=== PATIENT | female | born 1965 | race Caucasian/White ===

== ENCOUNTER → 2017-01-10 | Outpatient (CLI) | payer BC ==
[~2017-01-10] MED LIST: AZITTAB PO; MECL25TA2 PO; ONDA4TAB7 SL
== END | disposition home or self-care (01) ==
LOC: C.RDSM 08:00
PROVIDERS: ATTEND Family Medicine Sports Medicine
DX: M25.531 Pain in right wrist (principal)

== ENCOUNTER → 2017-01-22 | Outpatient (CLI) | payer BC ==
--- NOTE | 2017-01-22 11:21 | DIAGNOSTIC IMAGING REPORT ---
RIGHT WRIST INJECTION UNDER FLUOROSCOPIC GUIDANCE CLINICAL HISTORY: Right wrist pain. Injection for MR arthrogram. PROCEDURE: The risks, benefits, and alternatives to the procedure were discussed with the patient. Written informed consent was obtained. The patient was placed supine on the fluoroscopy table, and a right wrist injection was performed under fluoroscopic guidance. The area was prepped and draped in the usual sterile fashion. The skin and soft tissues anesthetized with local 1% lidocaine. The right wrist joint was accessed utilizing a 22-gauge needle, and approximately 4 cc of a mixture of gadolinium contrast, Optiray 300, and saline was injected into the joint space under fluoroscopic guidance. There was normal distention of the capsule. The procedure was well tolerated and without immediate complication. The patient was then transferred to MRI for MR arthrography. FLUOROSCOPY TIME: 10 seconds. IMPRESSION: Unremarkable injection of the right wrist under fluoroscopic guidance. Electronically signed by: Jacob Portillo M.D. 01/22/2017 11:20 AM Dictated Date/Time: 01/22/2017 11:18 AM
--- NOTE | 2017-01-22 12:23 | DIAGNOSTIC IMAGING REPORT ---
MR ARTHROGRAM OF THE RIGHT WRIST CLINICAL HISTORY: Scapholunate ligament injury. Right wrist pain. COMPARISON STUDY: Radiographs of the right wrist dated 01/10/2017. TECHNIQUE: MR arthrogram of the right wrist is performed following the intra-articular administration of gadolinium contrast. Sequences are acquired in the axial, sagittal, and coronal planes. FINDINGS: There is widening between the scaphoid and the lunate, with complete rupture of the anterior and posterior scapholunate ligaments. There is dorsal tilt of the lunate with mild proximal migration of the capitate. There is degenerative sclerosis seen within the base of the scaphoid, and significant degenerative narrowing is noted at the radiocarpal joint. Significant cartilage loss is noted in the distal radius. There is mild marrow edema within the scaphoid and the lunate, as well as the base of the capitate. There is no MRI evidence of fracture or osteonecrosis. There is extensive degenerative tearing/maceration of ulnomeniscal homologue. Injected contrast is present within the distal radioulnar joint. The ulnar carpal collateral ligament is at least partially torn. The visualized flexor and extensor tendons appear intact. The overlying soft tissues are within normal limits. IMPRESSION: 1. Findings are consistent with rupture of the scapholunate ligaments with widening at the scapholunate articulation. 2. 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 3. 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 4. There is extensive tearing/maceration of the ulnomeniscal homologue of the triangular fibrocartilage complex. There is associated fluid within the distal radioulnar joint. 5. Suspect at least partial thickness tearing of the ulnar carpal collateral ligament. Dictated: 01/22/2017 11:35 AM Transcribed: 01/22/2017 12:22 PM PAT_Kenn Electronically signed by: Jacob Portillo M.D. 01/22/2017 12:36 PM Dictated Date/Time: 01/22/2017 11:35 AM
== END | disposition home or self-care (01) ==
LOC: C.MRIBC 09:36
PROVIDERS: ATTEND Family Medicine Sports Medicine
DX: S63.094A Other dislocation of right wrist and hand, initial encounter (principal); X58.XXXA Exposure to other specified factors, initial encounter; R93.7 Abnormal findings on diagnostic imaging of other parts of musculoskeletal system

== ENCOUNTER → 2017-11-18 | Outpatient (CLI) | payer BC | END | disposition home or self-care (01) | LOC: C.PAPS 07:39 | PROVIDERS: ATTEND Obstetrics & Gynecology | DX: Z01.419 Encounter for gynecological examination (general) (routine) without abnormal findings (principal) ==

== ENCOUNTER → 2018-03-31 | Outpatient (CLI) | payer OTHER ==
--- NOTE | 2018-03-31 15:13 | MAMMOGRAPHY REPORT ---
BILATERAL DIGITAL SCREENING MAMMOGRAM TOMOSYNTHESIS WITH CAD: 03/31/2018 CLINICAL HISTORY: Routine screening. Patient has no complaints. TECHNIQUE: Breast tomosynthesis in addition to standard 2D mammography was performed. Current study was also evaluated with a Computer Aided Detection (CAD) system. COMPARISON: Comparison is made to exams dated: 03/27/2017 mammogram, 03/21/2016 mammogram, 03/20/2015 ma mmogram, 03/16/2014 mammogram, 03/09/2013 mammogram, and 03/03/2012 mammogram - [facility] nter. BREAST COMPOSITION: There are scattered areas of fibroglandular density in both breasts. FINDINGS: A linear scar marker overlies the upper outer posterior left breast. There are stable meta llic biopsy marker clips in each breast. There is a newly visualized 5 mm nodular asymmetry in the retroglandular fat of the slightly lateral right breast on the cc view, thought to project along the posterior nipple line on the MLO view, for which additional spot compression tomosynthesis views and possible ultrasound are recommended. There are possible new groupings of microcalcifications in the upper outer middle one third of the left br east, for which additional spot magnification views are warranted. No other suspicious mass, architectural distortion or cluster of microcalcifications is seen. IMPRESSION: ACR BI-RADS CATEGORY 0: INCOMPLETE EVALUATION: NEED ADDITIONAL IMAGING EVALUATION The 5 mm nodular asymmetry in the slightly lateral, posterior right breast on the CC view and possibl e new groupings of micro calcifications in the left upper outer quadrant need additional imaging eval uation. The patient will be called to schedule an appointment. Approximately 10% of breast cancers are not detected with mammography. A negative mammographic report should not delay biopsy if a clinically suggestive mass is present. Mona Mcclendon M.D. ay/:03/31/2018 08:53:11 Tie Worker: Angelita LUI(Minoo)(Laila), [facility] letter sent: Addl Imaging 0 BI-RADS Code: ACR BI-RADS Category 0: Incomplete Evaluation: Need Additional Imaging Evaluation
== END | disposition home or self-care (01) ==
LOC: C.MAMM 07:46
PROVIDERS: ATTEND Obstetrics & Gynecology
DX: Z12.31 Encounter for screening mammogram for malignant neoplasm of breast (principal); N64.89 Other specified disorders of breast; R92.1 Mammographic calcification found on diagnostic imaging of breast

== ENCOUNTER → 2018-04-15 | Outpatient (CLI) | payer OTHER ==
--- NOTE | 2018-04-15 14:23 | MAMMOGRAPHY REPORT ---
BILATERAL DIGITAL DIAGNOSTIC MAMMOGRAM TOMOSYNTHESIS AND TARGETED RIGHT ULTRASOUND: 04/15/2018 CLINICAL HISTORY: 52-year-old woman called back from screening mammography for left breast microcalci fications and a 5 mm nodular asymmetry in the lateral, posterior right breast. 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 Mother was recently diagnosed with left breast cancer, and maternal a unt also had breast cancer. TECHNIQUE: Spot magnification left CC, ML; spot compression tomosynthesis right CC and MLO views wer e obtained. COMPARISON: Comparison is made to exams dated: 03/31/2018 mammogram, 03/27/2017 mammogram, 04/05/2016 tori mogram, 04/05/2016 stereotactic biopsy, 04/02/2016 mammogram, and 03/21/2016 mammogram - [facility]. BREAST COMPOSITION: There are scattered areas of fibroglandular density in both breasts. FINDINGS: The spot magnification views of the left upper outer quadrant demonstrate expected archite ctural distortion in the 1:30 middle one third of the breast at the site of prior surgical excision. There is also a jerzy-shaped biopsy marker clip remaining within the left upper outer middle one third of the breast. In the CC projection, there are a few scattered punctate microcalcifications with 2 discrete clusters of calcifications in the middle one third of the breast, along the posterior nipple line and in the lateral aspect of the breast. These are both thought to project superiorly based on the spot magnification ML view and of the calcifications demonstrate layering to confirm benign milk of calcium. Given the personal history of left breast atypia and family history of breast cancer, s tereotactic guided biopsy of both of the most prominent clusters of calcifications are recommended. The spot compression tomosynthesis views of the right breast, particularly in the CC tomosynthesis im ages, demonstrate a persistent 5 mm nodular asymmetry with irregular borders. No associated calcific ation. Further evaluation with ultrasound was performed. Targeted ultrasound was performed throughout the lateral right breast including the 12:00, retroareol ar and 6:00 axes. Sonographically normal tissue is seen without a discrete solid or cystic mass. Gi angela the irregular masslike nature of this finding on the CC tomosynthesis images (slice 47/77), a mirza reotactic tomosynthesis guided right breast biopsy is also recommended. IMPRESSION: ACR BI-RADS CATEGORY 4: SUSPICIOUS, TARGETED ULTRASOUND ACR BI-RADS CATEGORY 4: SUSPICIO US 1. Left breast stereotactic guided biopsy is recommended for the 2 most prominent clusters of faint amorphous microcalcifications in the lateral left breast. 2. Right breast stereotactic tomosynthesis guided biopsy is recommended for a 5 mm irregular nodular asymmetry in the lateral, posterior right breast within the retroglandular fat, without sonographic correlate identified. These results and recommendations were discussed with the patient at the time of the exam. She tenta tively scheduled the bilateral breast stereotactic biopsies prior to leaving our department. Approximately 10% of breast cancers are not detected with mammography. A negative mammographic report should not delay biopsy if a clinically suggestive mass is present. Mona Mcclendon M.D. ay/:04/15/2018 10:59:04 Foreign Language Professor: Amaris Clinton, [facility] letter sent: Abnormal 4/5 BI-RADS Code: ACR BI-RADS Category 4: Suspicious Ultrasound BI-RADS: ACR BI-RADS Category 4: Suspici ous
== END | disposition home or self-care (01) ==
LOC: C.MAMM 09:04
PROVIDERS: ATTEND Obstetrics & Gynecology
DX: R92.0 Mammographic microcalcification found on diagnostic imaging of breast (principal); R92.8 Other abnormal and inconclusive findings on diagnostic imaging of breast; Z80.3 Family history of malignant neoplasm of breast